=== PATIENT | female | born 1985 | race Caucasian/White ===

== ENCOUNTER 2016-07-18 13:20 | Emergency (ER) | END 2016-07-18 17:05 | disposition home or self-care (01) | CPT/HCPCS: 99283; A9270 ==

== ENCOUNTER 2019-05-05 09:33 | Emergency (ER) | payer OTHER ==
[2019-05-05 09:39] VITALS: BP 139/96
--- NOTE | 2019-05-05 09:43 | ED Physician Documentation ---
PD HPI BACK INJURY - Stated complaint Stated Complaint: BACK PX - History obtained from History obtained from: Patient - History of Present Illness Location: Both, Lower Type of injury: Twist (just bent and threw a sweatshirt in laundry basket, with abrupt pain in low back.) Where injury occurred: Home Timing - onset: Last night Timing - details: Abrupt onset Quality: Pain, Spasm, Aching Improved by: Rest. No: Meds (tried Ibuprofen and Tylenol without improvement.) Worsened by: Moving, Palpating Associated symptoms: No: Fever, Weakness, Numbness, Incontinent of urine Similar symptoms before: Has not had sx before Review of Systems Constitutional: denies: Fever, Chills Nose: denies: Rhinorrhea / runny nose, Congestion Throat: denies: Sore throat Respiratory: denies: Cough GI: denies: Abdominal Pain, Nausea, Vomiting, Diarrhea : denies: Dysuria, Frequency Skin: denies: Rash, Lesions Musculoskeletal: reports: Back pain Neurologic: denies: Focal weakness, Numbness PD PAST MEDICAL HISTORY - Past Medical History Cardiovascular: None Endocrine/Autoimmune: None - Past Surgical History Past Surgical History: No - Present Medications Home Medications: Ambulatory Orders Medication Instructions Recorded Confirmed Hydrocodone/Acetaminophen [[place] 1 each PO Q6H PRN #20 tablet 07/18/16 5-325 Tablet] Methocarbamol [Robaxin] 500 mg PO Q6H PRN #25 tablet 07/18/16 Naproxen 375 mg PO BID #20 tablet 07/18/16 Hydrocodone/Acetaminophen 1 - 2 each PO Q6H PRN #14 tablet 05/05/19 [Hydrocodon-Acetaminophen 5-325] Naproxen 500 mg PO BID #20 tablet 05/05/19 Tizanidine HCl 4 mg PO TID PRN #25 capsule 05/05/19 - Allergies Allergies/Adverse Reactions: Allergies Allergy/AdvReac Type Severity Reaction Status Date / Time No Known Drug Allergies Allergy Verified 07/18/16 14:03 - Social History Does the pt smoke?: No Smoking Status: Never smoker Does the pt drink ETOH?: Yes PD ED PE NORMAL - Vitals Vital signs reviewed: Yes - General General: Alert and oriented X 3, No acute distress, Well developed/nourished - Abdomen Abdomen: Soft, Non tender - Back Back: No CVA TTP, No spinal TTP (not tender directly midline but in paralumbar muscles bilaterally. ) - Derm Derm: Normal color, Warm and dry - Neuro Neuro: Alert and oriented X 3, No motor deficit, No sensory deficit, Other (normal reflexes at knees. ) Results - Vitals Vitals: Vital Signs - 24 hr 05/05/19 09:37 Temperature 36.6 C Heart Rate 87 Respiratory 18 Rate Blood Pressure 139/96 H O2 Saturation 18 L Oxygen O2 Source Room air PD MEDICAL DECISION MAKING - ED course Complexity details: considered differential (no red flags and seems muscular. ), d/w patient Departure - Departure Disposition: Home, Self Care Clinical Impression: Low back strain Qualifiers: Encounter type: initial encounter Qualified Code(s): S39.012A - Strain of muscle, fascia and tendon of lower back, initial encounter Condition: Stable Record reviewed to determine appropriate education?: Yes Instructions: ED Sprain Strain Lumbar Follow-Up: MILLIE LANGE, [Primary Care Provider] - Prescriptions: Hydrocodone/Acetaminophen [Hydrocodon-Acetaminophen 5-325] 1 - 2 each PO Q6H PRN #14 tablet PRN Reason: pain Naproxen 500 mg PO BID #20 tablet Tizanidine HCl 4 mg PO TID PRN #25 capsule PRN Reason: Spasms Comments: Presume this is muscular or ligament most commonly. We treated with anti- inflammatories muscle relaxants and pain medicine. Heat and gentle stretching. Physical treatments such as massage and chiropractic are good as well. Limited bending and twisting over the next several days and progress as tolerated. Potentially may need to be off work for a couple of days as it is improving. Recheck if not improved well over the next several days to week. Forms: Activity restrictions Discharge Date/Time: 05/05/19 11:21
[2019-05-05] MEDS ORDERED: HYDROmorphone 2 MG/ML VIAL IM STA (10:09)
[2019-05-05] MEDS ORDERED: KETOROLAC 30 MG/ML VIAL IM STA (10:09)
[2019-05-05] MEDS ORDERED: ACETAMINOPHEN 325 MG TABLET PO STA (10:09)
[2019-05-05] MEDS ORDERED: METHOCARBAMOL 500 MG TABLET PO STA (10:09)
== END 2019-05-05 11:21 | disposition home or self-care (01) ==
LOC: ED 09:33
DX: S39.012A Strain of muscle, fascia and tendon of lower back, initial encounter (principal); X50.1XXA Overexertion from prolonged static or awkward postures, initial encounter; Y93.E2 Activity, laundry; Y92.009 Unspecified place in unspecified non-institutional (private) residence as the place of occurrence of the external cause
CPT/HCPCS: 96372; 99283; 99284; A9270; J1170

== ENCOUNTER 2019-08-13 14:47 | Emergency (ER) | payer OTHER ==
[2019-08-13 14:58] VITALS: BP 140/85
[2019-08-13 15:31] LABS: BILIRUBIN,URINE NEGATIVE (NEGATIVE); CLARITY,URINE CLEAR (CLEAR); GLUCOSE, URINE (UA) NEGATIVE (NEGATIVE); KETONES,URINE (UA) NEGATIVE (NEGATIVE); LEUKOCYTE ESTERASE, URINE TRACE (NEGATIVE); NITRITE,URINE NEGATIVE (NEGATIVE); OCCULT BLOOD,URINE LARGE (NEGATIVE); PROTEIN,URINE NEGATIVE (NEGATIVE); UROBILINOGEN,URINE 0.2 (NORMAL) E.U./dL (NORMAL)
[2019-08-13 15:33] LABS: HCG UR QUAL NEGATIVE
[2019-08-13 15:40] LABS: BACTERIA,URINE Few /HPF (None Seen); RBC,URINE 0-5 /HPF (0-5); SQUAMOUS EPITHELIAL CELL,UR FEW Squamous (<= Few)
--- NOTE | 2019-08-13 16:42 | ED Physician Documentation ---
PD HPI FEMALE - Stated complaint Stated Complaint: CRAMPING, IREEGULAR BLEEDING - Chief complaint Chief Complaint: Abd Pain - History obtained from History obtained from: Patient - History of Present Illness Timing - onset: Last night Timing - duration: Days (1) Timing - details: Abrupt onset, Still present Associated symptoms: Pelvic pain, Vaginal bleeding Contributing factors: No: OB-SHANKER OUT History: G (2), P (2) Similar symptoms before: Has not had sx before Recently seen: Not recently seen - Additional information Additional information: 33-year-old female with regular menstrual periods had her regular menstrual period about 4 days early last week and last night she had cramping again and developed vaginal bleeding. She has had more cramping and bleeding this morning and she became concerned is come to the emergency department her bleeding is now stopped. Review of Systems Constitutional: denies: Fever, Chills Eyes: denies: Decreased vision Ears: denies: Ear pain Nose: denies: Congestion Throat: denies: Sore throat Cardiac: denies: Chest pain / pressure Respiratory: denies: Dyspnea, Cough GI: reports: Abdominal Pain, Nausea. denies: Vomiting, Constipation, Diarrhea : reports: Vaginal bleeding, Irregular menses. denies: Dysuria, Frequency PD PAST MEDICAL HISTORY - Past Medical History Past Medical History: Yes Cardiovascular: None Respiratory: None Neuro: None Endocrine/Autoimmune: None GI: None SHANKER OUT: None : None HEENT: None Psych: Depression, Anxiety Musculoskeletal: None Derm: None - Past Surgical History Past Surgical History: No - Present Medications Home Medications: Ambulatory Orders Medication Instructions Recorded Confirmed Hydrocodone/Acetaminophen [[place] 1 each PO Q6H PRN #20 tablet 07/18/16 5-325 Tablet] Naproxen 375 mg PO BID #20 tablet 07/18/16 methocarbamoL [Robaxin] 500 mg PO Q6H PRN #25 tablet 07/18/16 Hydrocodone/Acetaminophen 1 - 2 each PO Q6H PRN #14 tablet 05/05/19 [Hydrocodon-Acetaminophen 5-325] Naproxen 500 mg PO BID #20 tablet 05/05/19 Tizanidine HCl 4 mg PO TID PRN #25 capsule 05/05/19 - Allergies Allergies/Adverse Reactions: Allergies Allergy/AdvReac Type Severity Reaction Status Date / Time No Known Drug Allergies Allergy Verified 08/13/19 14:58 - Social History Does the pt smoke?: No Smoking Status: Never smoker Does the pt drink ETOH?: Yes Does the pt have substance abuse?: No - Immunizations Immunizations are current?: Yes - POLST Patient has POLST: No PD ED PE NORMAL - Vitals Vital signs reviewed: Yes (hypertensive) - General General: Alert and oriented X 3, No acute distress, Well developed/nourished - HEENT HEENT: Atraumatic, PERRL, EOMI - Neck Neck: Supple, no meningeal sign, No bony TTP - Cardiac Cardiac: RRR, No murmur - Respiratory Respiratory: No respiratory distress, Clear bilaterally - Abdomen Abdomen: Normal bowel sounds, Soft, Non distended, No organomegaly, Other (mild suprapubic tenderness) - Back Back: No CVA TTP, No spinal TTP - Derm Derm: Normal color, Warm and dry, No rash - Extremities Extremities: No deformity, No edema - Neuro Neuro: Alert and oriented X 3, turntable man 2-12 intact, No motor deficit, No sensory deficit, Normal speech Eye Opening: Spontaneous Motor: Obeys Commands Verbal: Oriented GCS Score: 15 - Psych Psych: Normal mood, Normal affect Results - Vitals Vitals: Vital Signs - 24 hr 08/13/19 14:55 Temperature 36.2 C L Heart Rate 76 Respiratory 16 Rate Blood Pressure 140/85 H O2 Saturation 98 Oxygen O2 Source Room air - Labs Labs: Laboratory Tests 08/13/19 15:17 Urine Color YELLOW Urine Clarity CLEAR Urine pH 6.0 Ur Specific [place] <=1.005 Urine Protein NEGATIVE Urine Glucose (UA) NEGATIVE Urine Ketones NEGATIVE Urine Occult Blood LARGE H Urine Nitrite NEGATIVE Urine Bilirubin NEGATIVE Urine Urobilinogen 0.2 (NORMAL) Ur Leukocyte Esterase TRACE H Urine RBC 0-5 Urine WBC 4-5 Ur Squamous Epith Cells FEW Squamous Urine Bacteria Few Ur Microscopic Review INDICATED Urine Culture Comments INDICATED Urine HCG, Qual NEGATIVE PD MEDICAL DECISION MAKING - ED course Complexity details: reviewed results, re-evaluated patient, considered differential, d/w patient ED course: 33-year-old female with abnormal vaginal bleeding and cramping is not . I have given the patient instructions for dysfunctional uterine bleeding and she has follow-up with her primary tomorrow. I have indicated the patient there is no evidence of infection to the urine today the urine does make great for culture and we will call her if there is issue with pathologic infection. Departure - Departure Disposition: 01 Home, Self Care Clinical Impression: Dysfunctional uterine bleeding Condition: Stable Instructions: ED Bleed Irregular Vaginal Follow-Up: MILLIE LANGE DO [Primary Care Provider] -
== END 2019-08-13 17:02 | disposition home or self-care (01) ==
LOC: ED 14:47
DX: N93.8 Other specified abnormal uterine and vaginal bleeding (principal)
CPT/HCPCS: 81001; 81003; 81025; 87086; 99282; 99283